=== PATIENT | female | born 1970 | race African-American/Black ===

== ENCOUNTER 2017-01-09 13:56 | Emergency (ER) | payer BC ==
[2017-01-09 14:01] VITALS: BP 153/63; PULSE 70; TEMP 98.8; BMI 40.3
[2017-01-09] MEDS ORDERED: IBUPROFEN 400 MG TABLET (FP) PO ONE ×2 (14:28→14:34)
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
== END 2017-01-09 14:49 | disposition home or self-care (01) ==
LOC: JERFT 13:56
DX: M25.561 Pain in right knee (principal); G89.29 Other chronic pain; I10 Essential (primary) hypertension; K21.9 Gastro-esophageal reflux disease without esophagitis
CPT/HCPCS: 99281-25

== ENCOUNTER 2018-10-22 09:33 | Emergency (ER) | payer BC, OTHER ==
[2018-10-22 09:54] VITALS: BP 149/84; PULSE 86; TEMP 99.1; BMI 35.0
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
[2018-10-22] MEDS ORDERED: guaiFENesin/CODEINE 10 ML UNIT-DOSE CUPS PO ONE (10:38)
[2018-10-22] MEDS ORDERED: IBUPROFEN 400 MG TABLET (FP) PO ONE ×2 (10:38→10:50)
[2018-10-22] MEDS ORDERED: ALBUTEROL SO4 2.5/IPRATROPIUM 0.5 INH SOL 3 ML VIAL.NEB. NEB ONE ×2 (10:38→10:51)
[2018-10-22] MEDS ORDERED: guaiFENesin/D-METHORPHAN HB 10 ML UNIT-DOSE CUPS ONE (10:51)
[2018-10-22] MEDS ORDERED: guaiFENesin/D-METHORPHAN HB 10 ML UNIT-DOSE CUPS PO ONE (11:02)
== END 2018-10-22 12:44 | disposition home or self-care (01) ==
LOC: JERFT 09:33
PROC: 3E0F7GC Introduction of Other Therapeutic Substance into Respiratory Tract, Via Natural or Artificial Opening (ICD-10-PCS; principal; 2018-10-22)
DX: J06.9 Acute upper respiratory infection, unspecified (principal); F17.210 Nicotine dependence, cigarettes, uncomplicated; K21.9 Gastro-esophageal reflux disease without esophagitis; I10 Essential (primary) hypertension
CPT/HCPCS: 71046-TC-FY; 87070; 87804; 87880; 99281-25